=== PATIENT | female | born 1950 | race Caucasian/White ===

== ENCOUNTER 2017-01-17 19:16 | Emergency (ER) | payer OTHER ==
[2017-01-17 19:23] VITALS: RESP 16; TEMP 97.1
[2017-01-17] MEDS ORDERED: ACETAMINOPHEN 325 MG PO ONE (19:33)
[2017-01-17] MEDS ORDERED: ACETAMINOPHEN 500 MG 500 MG TAB ONE (19:41)
[2017-01-17] MEDS ORDERED: LIDOCAINE HCL 1% 50 MG/5 ML SOL INFIL ONE (20:11)
[2017-01-17] MEDS ORDERED: LIDOCAINE HCL 1% MPF SOL ONE (20:12)
[2017-01-17 20:21] VITALS: BP 176/71; PULSE 90; O2SAT 98
[2017-01-17] MEDS ORDERED: BACITRACIN 500 U/GM OIN TOP ONE ×2 (20:36→20:38)
== END 2017-01-17 20:55 | disposition home or self-care (01) | DRG 125 ==
LOC: ED 19:16
DX: S01.111A Laceration without foreign body of right eyelid and periocular area, initial encounter (principal); R42 Dizziness and giddiness; W45.8XXA Other foreign body or object entering through skin, initial encounter; S00.03XA Contusion of scalp, initial encounter; S50.11XA Contusion of right forearm, initial encounter; S80.01XA Contusion of right knee, initial encounter
CPT/HCPCS: 70450; 99285; J2001

== ENCOUNTER 2017-01-19 19:03 | Emergency (ER) | payer OTHER ==
[2017-01-19 19:17] VITALS: RESP 18; TEMP 99.2; O2SAT 99
[2017-01-19 19:50] VITALS: BP 157/56; PULSE 70
== END 2017-01-19 19:46 | disposition home or self-care (01) | DRG 950 ==
LOC: ED 19:03
DX: S01.111D Laceration without foreign body of right eyelid and periocular area, subsequent encounter (principal)
CPT/HCPCS: 99282

== ENCOUNTER 2017-08-01 07:01 | Day surgery (SDC) | payer OTHER ==
[2017-08-01] MEDS ORDERED: PROPOFOL 500 MG/50 ML EMU IV ONE (07:22)
[2017-08-01 09:02] VITALS: TEMP 99.1
[2017-08-01 09:32] VITALS: O2SAT 100
[2017-08-01 09:44] VITALS: BP 131/76; PULSE 69; RESP 20
== END 2017-08-01 10:10 | disposition home or self-care (01) | DRG 951 ==
LOC: SURG 07:01
PROVIDERS: ATTEND Internal Medicine Gastroenterology
DX: Z12.11 Encounter for screening for malignant neoplasm of colon (principal); K64.8 Other hemorrhoids; R53.1 Weakness
CPT/HCPCS: 82962; J2704

== ENCOUNTER 2018-08-20 09:55 | Outpatient (CLI) | payer OTHER | END 2018-08-20 09:56 | disposition home or self-care (01) | DRG 558 | LOC: CONVCARE 09:55 | PROVIDERS: ATTEND Orthopaedic Surgery | DX: M65.332 Trigger finger, left middle finger (principal); M19.042 Primary osteoarthritis, left hand | CPT/HCPCS: 73130 ==